=== PATIENT | female | born 1995 | race African-American/Black ===

== ENCOUNTER 2020-11-29 19:24 | Emergency (ER) | payer OTHER ==
[~2020-11-29] VITALS: Ht 162.6 cm; Wt 59.0 kg
[2020-11-29 19:42] VITALS: BP 117/65
--- NOTE | 2020-11-29 19:56 | NUR ---
Dr. Silva examining patient.
--- NOTE | 2020-11-29 20:05 | NUR ---
25 YO/F BIB self accompanied by w C/O n/v x6 weeks that worsened over the past 2 weeks, with light headedness, and abdominal cramping following vomiting episodes. Patient denies blood in vomit. Patient denies fever, diarrhea, vaginal bleeding. Patient reports she is 8 weeks . Bowel sounds present in all quadrants. Patient sitting in bed locked inlowest position, HOB elevated, x1 siderail up. Breathing even and unlabored. NAD, will continue to monitor. at bedside. PMH: X2 miscarriages, x1 live Allergies: Penicillins
[2020-11-29] MEDS ORDERED: ONDANSETRON 4 MG/2 ML VIAL IVP ONE (20:30)
[2020-11-29] MEDS ORDERED: NACL 0.9% 1,000 ML IV ONE (20:30)
[2020-11-29] MEDS ORDERED: ACETAMINOPHEN EXTRA STRENGTH 500 MG TAB PO ONE (20:30)
[2020-11-29 20:52] LABS: BASOPHILS % (AUTO) 0.3 % (0.0-2.0); EOSINOPHILS # (AUTO) 0.1 K/uL (0-0.4); EOSINOPHILS % (AUTO) 1.2 % (0.0-4.0); HEMATOCRIT 30.2 % (36-48); HEMOGLOBIN 10.3 g/dL (12.0-16.0); LYMPHOCYTES # (AUTO) 1.4 K/uL (2.5-16.5); LYMPHOCYTES % (AUTO) 33.5 % (20.5-51.1); MEAN CORPUSCULAR HEMOGLOBIN 33 pg (27-31); MEAN CORPUSCULAR HGB CONC 34 g/dL (33-37); MEAN CORPUSCULAR VOLUME 94.9 fL (80-94); MONOCYTES # (AUTO) 0.6 K/uL (0.8-1.0); MONOCYTES % (AUTO) 13.5 % (1.7-9.3); NEUTROPHILS # (AUTO) 2.2 K/uL (1.8-7.7); NEUTROPHILS % (AUTO) 51.5 % (42.2-75.2); PLATELET COUNT (AUTO) 210 K/uL (140-450); RED BLOOD CELL COUNT(AUTO) 3.18 MIL/uL (4.20-5.40); RED CELL DISTRIBUTION WIDTH 11.8 % (11.6-13.7); WHITE BLOOD COUNT (AUTO) 4.3 K/uL (4.8-10.8)
[2020-11-29 21:09] LABS: ALBUMIN 4.1 g/dL (3.4-5.0); ANION GAP 13.4 (8-16); CARBON DIOXIDE 24.5 mmol/L (21-32); CREATININE 0.5 mg/dL (0.6-1.3); POTASSIUM 3.9 mmol/L (3.5-5.1); TOTAL BILIRUBIN 0.4 mg/dL (0.0-1.0)
[2020-11-29] MEDS ORDERED: ACETAMINOPHEN EXTRA STRENGTH 500 MG TAB ONE (21:33)
[2020-11-29] MEDS ORDERED: ONDANSETRON 4 MG/2 ML VIAL ONE (21:33)
[2020-11-29 22:18] LABS: APPEARANCE,URINE CLEAR (CLEAR); BILIRUBIN,URINE 1+ (NEGATIVE); BLOOD, URINE NEGATIVE (NEGATIVE); COLOR,URINE YELLOW (YELLOW); LEUKOCYTE ESTERASE ,URINE NEGATIVE (NEGATIVE); NITRITE, URINE NEGATIVE (NEGATIVE); UGLUCOSE NEGATIVE (NEGATIVE)
[2020-11-29] MEDS ORDERED: ONDA-24 SL (22:36)
[2020-11-29 23:10] VITALS: BP 114/64
== END 2020-11-29 23:10 | disposition home or self-care (01) ==
LOC: MED 19:24
DX: O21.0 Mild hyperemesis gravidarum (principal); Z88.0 Allergy status to penicillin; Z79.899 Other long term (current) drug therapy; Z3A.08 8 weeks gestation of pregnancy
CPT/HCPCS: 36415; 80053; 81003; 84703; 85025; 96361; 96374; 99283; J2405; J7030

== ENCOUNTER 2020-12-07 09:58 | Emergency (ER) | payer OTHER ==
[~2020-12-07] VITALS: Ht 162.6 cm; Wt 56.9 kg
[~2020-12-07 09:58] MED LIST: ONDA-24 SL
[2020-12-07 10:21] VITALS: BP 128/69
--- NOTE | 2020-12-07 13:17 | NUR ---
PT AMBULATED TO BED 6
[2020-12-07] MEDS ORDERED: NACL 0.9% 1,000 ML IV ONE (13:20)
--- NOTE | 2020-12-07 13:21 | NUR ---
25/F presents to ED with c/o abdominal pain, nausea and vomiting. Patient states she is currently "9 weeks " and was diagnosed with hyperemesis gravidarium 1 week ago. Patient states she was taking reglan and zofran and states "the medication stopped working for me." Patient is A2, denies diarrhea and dysuria. Patient alert and oriented x4, answering questions appropriately.
--- NOTE | 2020-12-07 13:37 | NUR ---
PHLEB at bedside for blood draw.
[2020-12-07 13:52] LABS: BASOPHILS % (AUTO) 0.4 % (0.0-2.0); EOSINOPHILS % (AUTO) 0.8 % (0.0-4.0); HEMATOCRIT 33.4 % (36-48); HEMOGLOBIN 11.1 g/dL (12.0-16.0); LYMPHOCYTES # (AUTO) 1.2 K/uL (2.5-16.5); LYMPHOCYTES % (AUTO) 31.5 % (20.5-51.1); MEAN CORPUSCULAR HEMOGLOBIN 32 pg (27-31); MEAN CORPUSCULAR HGB CONC 33 g/dL (33-37); MEAN CORPUSCULAR VOLUME 96.2 fL (80-94); MONOCYTES # (AUTO) 0.5 K/uL (0.8-1.0); MONOCYTES % (AUTO) 13.5 % (1.7-9.3); NEUTROPHILS % (AUTO) 53.8 % (42.2-75.2); PLATELET COUNT (AUTO) 234 K/uL (140-450); RED BLOOD CELL COUNT(AUTO) 3.47 MIL/uL (4.20-5.40); RED CELL DISTRIBUTION WIDTH 11.9 % (11.6-13.7); WHITE BLOOD COUNT (AUTO) 3.7 K/uL (4.8-10.8)
[2020-12-07 15:25] LABS: ALBUMIN 3.6 g/dL (3.4-5.0); ANION GAP 16.5 (8-16); CARBON DIOXIDE 19.2 mmol/L (21-32); CREATININE 0.5 mg/dL (0.6-1.3); POTASSIUM 3.7 mmol/L (3.5-5.1); TOTAL BILIRUBIN 0.4 mg/dL (0.0-1.0)
[2020-12-07] MEDS ORDERED: PROCHLORPERAZINE 10 MG/2 ML VIAL IVP ONE (17:15)
--- NOTE | 2020-12-07 17:41 | NUR ---
RENATO Owens is evaluating the patient at bedside.
[2020-12-07] MEDS ORDERED: PROM25SU RC (17:47)
[2020-12-07] MEDS ORDERED: PROC-62 PO (17:47)
--- NOTE | 2020-12-07 17:59 | NUR ---
Patient discharged with v/s stable. Written and verbal after care instructions given and explained. Patient alert, oriented and verbalized understanding of instructions. Ambulatory with steady gait. All questions addressed prior to discharge. ID band removed. Patient advised to follow up with PMD. Rx of Compazine and Promethazine given. Patient educated on indication of medication including possible reaction and side effects. Opportunity to ask questions provided and answered.
[2020-12-07 18:00] VITALS: BP 108/60
== END 2020-12-07 17:59 | disposition home or self-care (01) ==
LOC: MED 09:58
DX: O26.851 Spotting complicating pregnancy, first trimester (principal); O21.8 Other vomiting complicating pregnancy; Z88.0 Allergy status to penicillin; Z79.899 Other long term (current) drug therapy; Z3A.09 9 weeks gestation of pregnancy
CPT/HCPCS: 36415; 76801; 76802; 80053; 81002; 81025; 84702; 85025; 86900; 86901; 96361; 96374; 99285; J0780; J7030

== ENCOUNTER 2020-12-28 11:18 | Outpatient (CLI) | payer OTHER ==
[~2020-12-28 11:18] MED LIST changes: +PROC-62 PO; +PROM25SU RC
== END 2020-12-28 21:02 | disposition home or self-care (01) ==
LOC: MUS 11:18
PROVIDERS: ATTEND Obstetrics & Gynecology
DX: O30.001 Twin pregnancy, unspecified number of placenta and unspecified number of amniotic sacs, first trimester (principal); Z3A.12 12 weeks gestation of pregnancy
CPT/HCPCS: 76802